=== PATIENT | female | born 1975 | race Caucasian/White ===

== ENCOUNTER → 2016-11-21 | Outpatient (CLI) | payer OTHER ==
[2016-11-21 11:24] LABS: BASO % 0.3 %; BASO ABS # 0.02 K/uL (0-0.2); HEMATOCRIT 36.7 % (37-47); IG% 0.3 %; LYMPH % 36.3 %; LYMPH ABS # 2.22 K/uL (1.2-3.4); MEAN CELL VOLUME 71.1 fL (80-100); MEAN CORPUSCULAR HEMOGLOBIN 22.7 pg (25-34); MEAN CORPUSCULAR HGB CONC 31.9 g/dl (32-36); MEAN PLATELET VOLUME 9.8 fL (7.4-10.4); MONO % 11.1 %; PLATELET COUNT 311 K/uL (130-400); RED BLOOD COUNT 5.16 M/uL (4.2-5.4); WHITE BLOOD COUNT 6.11 K/uL (4.8-10.8)
[2016-11-21 11:54] LABS: FERRITIN 30.5 ng/ml (8.0-388.0)
[2016-11-21 11:59] LABS: THYROID STIMULATING HORMONE 2.58 uIu/ml (0.300-4.500)
[2016-11-21 12:05] LABS: COMPLETE YES; MICROCYTOSIS PRESENT
== END | disposition home or self-care (01) ==
LOC: C.LAB 09:30
PROVIDERS: ATTEND Urology
DX: Z79.899 Other long term (current) drug therapy (principal); D64.9 Anemia, unspecified

== ENCOUNTER → 2017-04-29 | Outpatient (CLI) | payer OTHER ==
[2017-04-29 15:17] LABS: LYME DISEASE AB IGG NEG (NEG); LYME DISEASE AB IGM NEG (NEG)
== END | disposition home or self-care (01) ==
LOC: C.LAB1850 11:31
PROVIDERS: ATTEND Family Medicine Sports Medicine
DX: M54.5 Low back pain (principal); M53.3 Sacrococcygeal disorders, not elsewhere classified; M79.7 Fibromyalgia

== ENCOUNTER 2017-10-03 18:02 | Inpatient (IN) | payer OTHER ==
[~2017-10-03] VITALS: Ht 154.9 cm; Wt 76.0 kg
[2017-10-03] MEDS ORDERED: SODIUM CHLORIDE 0.9% 1000ML 1,000 ML IV STA (19:32)
[2017-10-03] MEDS ORDERED: ONDANSETRON INJ 2 MG/ML 2 ML VIAL IV STA (19:32)
--- NOTE | 2017-10-03 19:38 | EMERGENCY ROOM VISIT NOTE ---
History Report prepared by [facility]: Anel Rahman Under the Supervision of: Nain SmithO. First contact with patient: 19:26 Chief Complaint: VOMITING Stated Complaint: VOMITING,DIARRHEA,STOMACH CRAMPS History of Present Illness The patient is a 42 year old female who presents to the Emergency Room with complaints of vomiting beginning 0700 this morning. The patient states that she had diarrhea before the vomiting started, and states that yesterday she woke up with a sore throat. She also reports having abdominal cramps and reports feeling dizzy and light-headed. She states that she has been unable to eat or drink all day. She denies having black or bloody stool. The patient reports a history of inflammatory bowel disease with chronic diarrhea, fibromyalgia, bipolar disorder, and depression. She reports having C. diff several times, the last of which was 3 years ago. The patient reports a history of a cholecystectomy, hysterectomy, and appendectomy. Source of History: patient Onset: 0700 this morning Position: other (global) Quality: other (vomiting ) Associated Symptoms: + abdominal pain (abdominal cramps ), + diarrhea, + weakness (dizzy, light-headed) Note: patient denies: black and bloody stool Review of Systems See HPI for pertinent positives & negatives. A total of 10 systems reviewed and were otherwise negative. Past Medical & Surgical Medical Problems: (1) Abdominal pain (2) Allergic reaction (3) Allergic reaction (4) Chest pain (5) Chronic abdominal pain (6) Colitis (7) Gallbladder sludge (8) Gastroparesis (9) Hip pain (10) Hip pain (11) IBS (12) Migraine (13) Nausea vomiting and diarrhea (14) Nausea vomiting and diarrhea (15) Nausea, vomiting, and diarrhea (16) Ovarian cyst (17) Tubal Surgical Problems: (1) Appendectomy (2) H/O colonoscopy (3) History of - tubal ligation (4) Hysterectomy Family History No pertinent family history Social History Smoking Status: Never Smoker Alcohol Use: occasionally Marital Status: Occupation Status: employed Current/Historical Medications Scheduled Gabapentin (Neurontin), 600 MG PO TID Hydroxyzine Hcl (Atarax), 50 MG PO TID Lubiprostone (Amitiza), 1 CAP PO DAILY Pantoprazole (Protonix), 40 MG PO DAILY Probiotic Product (Align), 4 MG PO DAILY Trazodone Hcl (Trazodone), 100 MG PO HS Ziprasidone Hcl (Geodon), 1 DOSE PO BID Scheduled PRN Eletriptan (Relpax), 20 MG PO UD PRN for Migraine Allergies Coded Allergies: Amitriptyline (Verified Allergy, Mild, UNKNOWN, 06/29/16) Aspirin (Verified Allergy, Mild, FACE SWELLING, HAD TORADOL IN OR BEFORE W /O RXN, 06/29/16) Diazepam (Verified Allergy, Mild, UNKNOWN, 06/29/16) Lorazepam (Verified Allergy, Mild, UNKNOWN, 06/29/16) Midazolam (Verified Allergy, Unknown, respiratory distress, 06/29/16) Physical Exam Vital Signs Date Time Temp Pulse Resp B/P (MAP) Pulse Ox O2 Delivery O2 Flow Rate FiO2 10/03/17 21:30 95 16 119/88 97 Room Air 10/03/17 19:35 63 16 108/62 96 Room Air 10/03/17 18:33 36.2 128 18 117/82 95 Room Air Physical Exam GENERAL: Patient is awake, alert, and in no acute distress. Patient is resting comfortably and showing no signs of anxiety EYES: The conjunctivae are clear. The pupils are round and reactive. EARS, NOSE, MOUTH AND THROAT: The nose is without any evidence of any deformity. Mucous membranes are moist tongue is midline NECK: The neck is nontender and supple. RESPIRATORY: Normal respiratory effort is noted there is no evidence of wheezing rhonchi or rales CARDIOVASCULAR: Tachycardic rate, regular rhythm noted there no murmurs rubs or gallops normal S1 normal S2 GASTROINTESTINAL: The abdomen is soft. Bowel sounds are present in all quadrants. Abdomen is moderately distended and diffusely tender. No guarding or rigidity appreciated. MUSCULOSKELETAL/EXTREMITIES: There is no evidence of gross deformity full range of motion is noted in the hips and shoulders SKIN: There is no obvious evidence of any rash. There are no petechiae, pallor or cyanosis noted. NEUROLOGIC: Patient is awake alert and oriented x3 strength is symmetric patellar reflexes are 2+ bilaterally Medical Decision & Procedures ER Provider Diagnostic Interpretation: Radiology results as stated below per my review and radiologist interpretation: PA CHEST WITH ABDOMINAL SERIES CLINICAL HISTORY: Generalized abdominal pain. FINDINGS: A PA chest radiograph is compared to study dated 07/31/2015. The cardiomediastinal silhouette is unremarkable. There is mild elevation of the right hemidiaphragm. The lungs and pleural spaces are clear. No pneumothorax is seen. The bony thorax is grossly intact. Supine and erect abdominal radiographs are compared to radiographs and abdominal CT dated 07/23/2015. Cholecystectomy clips are seen in the right upper quadrant. There is a nonobstructed abdominal bowel gas pattern. No evidence of intraperitoneal free air is seen. There are no abnormal abdominal calcifications. Phleboliths are noted in the pelvis. The lumbosacral spine and bony pelvis appear intact. IMPRESSION: 1. No active disease in the chest. 2. Nonobstructed abdominal bowel gas pattern. Electronically signed by: Soy Meraz M.D. 10/03/2017 8:27 PM Dictated Date/Time: 10/03/2017 8:25 PM Laboratory Results 10/03/17 19:40 Red Blood Count 6.19, Mean Corpuscular Volume 71.6, Mean Corpuscular Hemoglobin 23.3, Mean Corpuscular Hemoglobin Concent 32.5, Mean Platelet Volume 9.6, Neutrophils (%) (Auto) 84.7, Lymphocytes (%) (Auto) 7.4, Monocytes (%) (Auto) 7.3, Eosinophils (%) (Auto) 0.2, Basophils (%) (Auto) 0.2, Neutrophils # (Auto) 10.86, Lymphocytes # (Auto) 0.95, Monocytes # (Auto) 0.94, Eosinophils # (Auto) 0.03, Basophils # (Auto) 0.03 10/03/17 19:40 Test 10/03/17 19:40 White Blood Count 12.84 K/uL (4.8-10.8) Red Blood Count 6.19 M/uL (4.2-5.4) Hemoglobin 14.4 g/dL (12.0-16.0) Hematocrit 44.3 % (37-47) Mean Corpuscular Volume 71.6 fL (80-100) Mean Corpuscular Hemoglobin 23.3 pg (25-34) Mean Corpuscular Hemoglobin Concent 32.5 g/dl (32-36) Platelet Count 367 K/uL (130-400) Mean Platelet Volume 9.6 fL (7.4-10.4) Neutrophils (%) (Auto) 84.7 % Lymphocytes (%) (Auto) 7.4 % Monocytes (%) (Auto) 7.3 % Eosinophils (%) (Auto) 0.2 % Basophils (%) (Auto) 0.2 % Neutrophils # (Auto) 10.86 K/uL (1.4-6.5) Lymphocytes # (Auto) 0.95 K/uL (1.2-3.4) Monocytes # (Auto) 0.94 K/uL (0.11-0.59) Eosinophils # (Auto) 0.03 K/uL (0-0.5) Basophils # (Auto) 0.03 K/uL (0-0.2) RDW Standard Deviation 37.3 fL (36.4-46.3) RDW Coefficient of Variation 14.3 % (11.5-14.5) Immature Granulocyte % (Auto) 0.2 % Immature Granulocyte # (Auto) 0.03 K/uL (0.00-0.02) Spherocytes 2+ Urine Color DK YELLOW Urine Appearance CLOUDY (CLEAR) Urine pH 5.0 (4.5-7.5) Urine Specific [place] 1.027 (1.000-1.030) Urine Protein TRACE (NEG) Urine Glucose (UA) NEG (NEG) Urine Ketones 1+ (NEG) Urine Occult Blood NEG (NEG) Urine Nitrite NEG (NEG) Urine Bilirubin NEG (NEG) Urine Urobilinogen NEG (NEG) Urine Leukocyte Esterase NEG (NEG) Urine WBC (Auto) 1-5 /hpf (0-5) Urine RBC (Auto) 0-4 /hpf (0-4) Urine Hyaline Casts (Auto) 5-10 /lpf (0-5) Urine Epithelial Cells (Auto) >30 /lpf (0-5) Urine Bacteria (Auto) 2+ (NEG) Urine Pathogenic Casts /lpf (0) Urine Mucus PRESENT (NONE PRSENT) Urine Yeast (Auto) (NONE PRSENT) Anion Gap 9.0 mmol/L (3-11) Est Creatinine Clear Calc Drug Dose 63.5 ml/min Estimated GFR () 75.0 Estimated GFR (Non- 64.7 BUN/Creatinine Ratio 13.4 (10-20) Calcium Level 9.0 mg/dl (8.5-10.1) Total Bilirubin 0.6 mg/dl (0.2-1) Direct Bilirubin 0.2 mg/dl (0-0.2) Aspartate Amino Transf (AST/SGOT) 111 U/L (15-37) Alanine Aminotransferase (ALT/SGPT) 78 U/L (12-78) Alkaline Phosphatase 142 U/L (45-117) Total Protein 8.7 gm/dl (6.4-8.2) Albumin 4.0 gm/dl (3.4-5.0) Lipase 2831 U/L (73-393) Human Chorionic Gonadotropin, Qual NEG (NEG) Laboratory results per my review. Medications Administered Medications (Trade) Dose Ordered Sig/Andrew Route Start Time Stop Time Status Last Admin Dose Admin Sodium Chloride 1,000 ml @ 999 mls/hr Q1H1M STAT IV 10/03/17 19:32 10/03/17 20:32 DC 10/03/17 19:45 999 MLS/HR Ondansetron HCl (Zofran Inj) 4 mg NOW STAT IV 10/03/17 19:32 10/03/17 19:33 DC 10/03/17 19:45 4 MG Pantoprazole Sodium 40 mg/ Syringe 10 ml @ 5 mls/min NOW ONCE IV 10/03/17 21:00 10/03/17 21:01 DC 10/03/17 21:28 5 MLS/MIN ED Course 0: The patient was evaluated in room C8. A complete history and physical examination were performed. 1931: Ordered Zofran Inj 4 mg IV, Sodium Chloride 1,000 ml @ 999 mls/hr IV. 2099: Ordered Pantoprazole Sodium 40 mg/Syringe 10 ml @ 5 mls/min IV. 2109: Upon reevaluation, the patient is resting. I discussed results and treatment plan with her. She verbalizes agreement and understanding. [facility] The patient will be evaluated for further management and care. Medical Decision Differential diagnosis: Etiologies such as appendicitis, diverticulitis, PUD, biliary pathology, UTI, pancreatitis, obstruction, mesenteric ischemia, aortic pathology, infections, inflammatory bowel disease, renal colic, as well as others were entertained. Nursing notes reviewed. The patient is a 42-year-old female who presented to the emergency department for an evaluation of diffuse abdominal tenderness. The patient was treated with IV fluids in the emergency department. She was also treated with IV antiemetics. I discussed patient's laboratory and radiographic studies with her. She was found have an elevation in her lipase and I do feel that her exam and history are consistent with pancreatitis. The patient denied any alcohol use. The patient was reevaluated multiple times. I discussed her case with the on-call [facility] hospitalist group. They've agreed to evaluate the patient in the emergency department for further management and disposition. Medication Reconcilliation Current Medication List: was personally reviewed by me Blood Pressure Screening Patient's blood pressure: Normal blood pressure Consults Time Called: 2102 Consulting Physician: Dr. Mccracken- [place] Returned Call: 2109 I discussed the patient's case with Dr. Mccracken . The patient will be evaluated for further management. Impression Primary Impression: Nausea, vomiting, and diarrhea Additional Impressions: Pancreatitis Abdominal pain Scribe Attestation The scribe's documentation has been prepared under my direction and personally reviewed by me in its entirety. I confirm that the note above accurately reflects all work, treatment, procedures, and medical decision making performed by me. Departure Information Dispostion Being Evaluated By Hospitalist Referrals Farhan Chu M.D. (PCP) Patient Instructions My [facility] Health Problem Qualifiers Additional Impressions: Pancreatitis Chronicity: acute Pancreatitis type: unspecified pancreatitis type Acute pancreatitis complication: unspecified Qualified Codes: K85.90 - Acute pancreatitis without necrosis or infection, unspecified Abdominal pain Abdominal location: generalized Qualified Codes: R10.84 - Generalized abdominal pain
[2017-10-03 20:03] LABS: URINE APPEARANCE CLOUDY (CLEAR); URINE BILIRUBIN NEG (NEG); URINE COLOR DK YELLOW; URINE EPITHELIAL CELL AUTO >30 /lpf (0-5); URINE NITRITE NEG (NEG); URINE SPECIFIC GRAVITY 1.027 (1.000-1.030); UROBILINOGEN NEG (NEG)
[2017-10-03 20:09] LABS: BASO % 0.2 %; BASO ABS # 0.03 K/uL (0-0.2); EOS % 0.2 %; HEMATOCRIT 44.3 % (37-47); IG% 0.2 %; LYMPH % 7.4 %; LYMPH ABS # 0.95 K/uL (1.2-3.4); MEAN CELL VOLUME 71.6 fL (80-100); MEAN CORPUSCULAR HEMOGLOBIN 23.3 pg (25-34); MEAN CORPUSCULAR HGB CONC 32.5 g/dl (32-36); MEAN PLATELET VOLUME 9.6 fL (7.4-10.4); MONO % 7.3 %; NEUT % 84.7 %; PLATELET COUNT 367 K/uL (130-400); RED BLOOD COUNT 6.19 M/uL (4.2-5.4); WHITE BLOOD COUNT 12.84 K/uL (4.8-10.8)
[2017-10-03 20:10] LABS: MANUAL MICROSCOPIC REQUIRED? NO; REVIEW REQ? YES
[2017-10-03 20:18] LABS: URINE MUCUS PRESENT (NONE PRSENT)
[2017-10-03 20:27] LABS: PREG INTERNAL NEGATIVE QC NEG CLEAR BACKGROUND; PREG INTERNAL POSITIVE QC POS CONTROL LINE
[2017-10-03] MEDS ORDERED: ZIPR1CAP4 PO (20:28)
[2017-10-03] MEDS ORDERED: GABA600T PO (20:28)
[2017-10-03] MEDS ORDERED: HYDR-3126 PO (20:28)
[2017-10-03] MEDS ORDERED: TRAZ100T29 PO (20:28)
[2017-10-03] MEDS ORDERED: LUBI8CAP4 PO (20:28)
[2017-10-03] MEDS ORDERED: MISC4CAP PO (20:28)
[2017-10-03] MEDS ORDERED: PANT40TA PO (20:28)
[2017-10-03] MEDS ORDERED: ELET20TA PO (20:28)
--- NOTE | 2017-10-03 20:29 | DIAGNOSTIC IMAGING REPORT ---
PA CHEST WITH ABDOMINAL SERIES CLINICAL HISTORY: Generalized abdominal pain. FINDINGS: A PA chest radiograph is compared to study dated 07/31/2015. The cardiomediastinal silhouette is unremarkable. There is mild elevation of the right hemidiaphragm. The lungs and pleural spaces are clear. No pneumothorax is seen. The bony thorax is grossly intact. Supine and erect abdominal radiographs are compared to radiographs and abdominal CT dated 07/23/2015. Cholecystectomy clips are seen in the right upper quadrant. There is a nonobstructed abdominal bowel gas pattern. No evidence of intraperitoneal free air is seen. There are no abnormal abdominal calcifications. Phleboliths are noted in the pelvis. The lumbosacral spine and bony pelvis appear intact. IMPRESSION: 1. No active disease in the chest. 2. Nonobstructed abdominal bowel gas pattern. Electronically signed by: Soy Meraz M.D. 10/03/2017 8:27 PM Dictated Date/Time: 10/03/2017 8:25 PM
[2017-10-03 20:30] LABS: BUN/CREATININE RATIO 13.4 (10-20); CREATININE 1.06 mg/dl (0.60-1.20); POTASSIUM 3.9 mmol/L (3.5-5.1)
[2017-10-03 21:00] LABS: COMPLETE YES; SPHEROCYTE 2+
[2017-10-03] MEDS ORDERED: PANTOprazole INJ 40 MG in SYRINGE 0 ML IV ONE (21:00)
[2017-10-03] MEDS ORDERED: OPTIRAY 320 IV PRN (22:00)
[2017-10-03] MEDS ORDERED: ONDANSETRON INJ 2 MG/ML 2 ML VIAL IV PRN (22:00)
[2017-10-03] MEDS ORDERED: KETOROLAC TROMETHAMINE 30 MG/ML VIAL ONE (22:15)
[2017-10-03] MEDS ORDERED: KETOROLAC TROMETHAMINE 30 MG/ML VIAL IV PRN (22:15)
[2017-10-03] MEDS ORDERED: MoRPHine SULFATE 2 MG/ML CARP IV PRN (22:15)
[2017-10-03] MEDS ORDERED: MoRPHine SULFATE 4 MG/ML 1 ML CARP\\VIAL IV PRN (22:15)
--- NOTE | 2017-10-03 22:51 | DIAGNOSTIC IMAGING REPORT ---
CT SCAN OF THE ABDOMEN AND PELVIS WITH IV CONTRAST CLINICAL HISTORY: Epigastric abdominal pain. Clinical concern for pancreatitis. COMPARISON STUDY: Abdominal CT dated 07/31/2015. TECHNIQUE: Following the IV administration of 92 cc of Optiray 320, CT scan of the abdomen and pelvis is performed from the lung bases to the proximal femora. Images are reviewed in the axial, sagittal, and coronal planes. IV contrast was administered without complication. A dose lowering technique was utilized adhering to the principles of ALARA. CT DOSE: 397.71 mGy.cm FINDINGS: Lung bases: The heart is normal in size and without pericardial effusion. The lung bases are clear noting dependent atelectasis. Liver: The contrast-enhanced liver is normal in size, contour, and attenuation. There is minimal central intrahepatic biliary ductal dilatation. The hepatic veins and portal veins are patent. A 2.3 cm cyst is seen in the left lobe. Additional subcentimeter hypodensities also likely represent cysts but are too small for definitive characterization. Gallbladder: Surgically absent noting clips in the gallbladder fossa. Spleen: Normal in size and attenuation. Pancreas: The pancreas is normal in appearance. No peripancreatic stranding or fluid is seen. The pancreatic duct is normal in caliber. The splenic vein is patent. The gland enhances homogeneously. Adrenal glands: Unremarkable. Kidneys: The contrast enhanced kidneys are normal in size and without hydronephrosis. The kidneys enhance symmetrically. Abdominal vasculature: The abdominal aorta is normal in course and caliber. Bowel: The small bowel and colon are normal in course and caliber. The appendix is not identified and reported surgically absent. Peritoneum: There is no intraperitoneal free air or abdominal ascites. There is a fat-containing umbilical hernia. Lymphadenopathy: None. Pelvic viscera: The bladder is decompressed and grossly unremarkable. The uterus is surgically absent. No adnexal lesion is seen. Small ovarian follicles are observed. Skeletal structures: No lytic or blastic lesions are seen. IMPRESSION: 1. There are no acute infectious or inflammatory findings in the abdomen or pelvis. 2. There is no CT evidence of acute pancreatitis as clinically queried. Correlation with clinical and laboratory findings will be required. Electronically signed by: Soy Meraz M.D. 10/03/2017 10:50 PM Dictated Date/Time: 10/03/2017 10:44 PM
[2017-10-03 22:56] VITALS: BP 112/77; PULSE 87; TEMP 36.5; O2SAT 98; Ht 154.9 cm; Wt 76.0 kg
--- NOTE | 2017-10-04 04:48 | History and Physical ---
History & Physical Date & Time of Service: Oct 04, 2017 at 04:36 Chief Complaint: Pancreatitis Primary Care Physician: Farhan Chu M.D. History of Present Illness Source: patient, hospital records This is a 42 yo f with a history of bipolar disorder that is presenting to us with acute onset epigastric pain. The patient states that it started earlier with N&V and acute diarrhea ( no blood/ mucus). She then started to develop epigastric abdominal pain which is currently a 6/10. The patient states that during the interview the pain started to radiate to the back. This pain is aggravated with any movement. She was evaluated in the ED and found to have an elevated lipase. The patient notes that she no history of pancreatitis , drinks rarely and has a history of cholecystectomy and appendectomy. Past Medical/Surgical History Medical Problems: (1) Abdominal pain Status: Resolved (2) Allergic reaction Status: Resolved (3) Allergic reaction Status: Resolved (4) Chest pain Status: Resolved (5) Chronic abdominal pain Status: Chronic (6) Colitis Status: Chronic (7) Gallbladder sludge Status: Chronic (8) Gastroparesis Status: Chronic (9) Hip pain Status: Resolved (10) Hip pain Status: Resolved (11) IBS Status: Chronic (12) Migraine Status: Chronic (13) Nausea vomiting and diarrhea Status: Resolved (14) Nausea vomiting and diarrhea Status: Resolved (15) Nausea, vomiting, and diarrhea Status: Resolved (16) Ovarian cyst Status: Resolved (17) Tubal Status: Resolved Surgical Problems: (1) Appendectomy Status: Resolved (2) H/O colonoscopy Status: Resolved (3) History of - tubal ligation Status: Resolved (4) Hysterectomy Status: Resolved Family History No pertinent family history Social History Smoking Status: Never Smoker Smokeless Tobacco Use: No Alcohol Use: occasionally Drug Use: none Marital Status: Housing status: lives with family Occupational Status: employed Immunizations History of Influenza Vaccine: No History of Tetanus Vaccine?: Unknown History of Pneumococcal: Unknown History of Hepatitis B Vaccine: Yes Multi-Drug Resistant Organisms History of MDRO: No Allergies Coded Allergies: Amitriptyline (Verified Allergy, Mild, UNKNOWN, 06/29/16) Aspirin (Verified Allergy, Mild, FACE SWELLING, HAD TORADOL IN OR BEFORE W /O RXN, 06/29/16) Diazepam (Verified Allergy, Mild, UNKNOWN, 06/29/16) Lorazepam (Verified Allergy, Mild, UNKNOWN, 06/29/16) Midazolam (Verified Allergy, Unknown, respiratory distress, 06/29/16) Home Medications Scheduled Gabapentin (Neurontin), 600 MG PO TID Hydroxyzine Hcl (Atarax), 50 MG PO TID Lubiprostone (Amitiza), 1 CAP PO DAILY Pantoprazole (Protonix), 40 MG PO DAILY Probiotic Product (Align), 4 MG PO DAILY Trazodone Hcl (Trazodone), 100 MG PO HS Ziprasidone Hcl (Geodon), 1 DOSE PO BID Scheduled PRN Eletriptan (Relpax), 20 MG PO UD PRN for Migraine Review of Systems Constitutional: No fever, No chills, No sweats Eyes: No worsening of vision ENT: No hearing loss Respiratory: No cough, No sputum, No wheezing, No shortness of breath Cardiovascular: No chest pain Abdomen: + pain, + nausea, + vomiting, + diarrhea Musculoskeletal: No joint pain, No muscle pain Genitourinary - Female: No dysuria, No hematuria Neurologic: + weakness, No numbness/tingling, No balance problems Endocrine: + fatigue Integumentary: No rash Physical Exam Vital Signs Date Time Temp Pulse Resp B/P (MAP) Pulse Ox O2 Delivery O2 Flow Rate FiO2 10/03/17 22:56 36.5 87 16 112/77 98 Room Air 10/03/17 22:30 36.2 88 16 104/78 97 10/03/17 21:30 95 16 119/88 97 Room Air 10/03/17 19:35 63 16 108/62 96 Room Air 10/03/17 18:33 36.2 128 18 117/82 95 Room Air General Appearance: no apparent distress Head: normocephalic, atraumatic Eyes: normal inspection ENT: + pertinent finding (tropia noted) Neck: supple Respiratory/Chest: normal breath sounds, no respiratory distress, no accessory muscle use Cardiovascular: regular rate, rhythm, no murmur, normal peripheral pulses Abdomen/GI: normal bowel sounds, soft, + tenderness ( without rebound in epigastric region, negative marin, mcburney and obturator) Back: normal inspection, no CVA tenderness Extremities/Musculoskelatal: normal inspection, no calf tenderness, no pedal edema Neurologic/Psych: alert, normal mood/affect, oriented x 3 Skin: normal color, warm/dry, no rash Lymphatic: no adenopathy Diagnostics Laboratory Results Results Past 24 Hours Test 10/03/17 19:40 Range/Units White Blood Count 12.84 4.8-10.8 K/uL Red Blood Count 6.19 4.2-5.4 M/uL Hemoglobin 14.4 12.0-16.0 g/dL Hematocrit 44.3 37-47 % Mean Corpuscular Volume 71.6 80-100 fL Mean Corpuscular Hemoglobin 23.3 25-34 pg Mean Corpuscular Hemoglobin Concent 32.5 32-36 g/dl Platelet Count 367 130-400 K/uL Mean Platelet Volume 9.6 7.4-10.4 fL Neutrophils (%) (Auto) 84.7 % Lymphocytes (%) (Auto) 7.4 % Monocytes (%) (Auto) 7.3 % Eosinophils (%) (Auto) 0.2 % Basophils (%) (Auto) 0.2 % Neutrophils # (Auto) 10.86 1.4-6.5 K/uL Lymphocytes # (Auto) 0.95 1.2-3.4 K/uL Monocytes # (Auto) 0.94 0.11-0.59 K/uL Eosinophils # (Auto) 0.03 0-0.5 K/uL Basophils # (Auto) 0.03 0-0.2 K/uL RDW Standard Deviation 37.3 36.4-46.3 fL RDW Coefficient of Variation 14.3 11.5-14.5 % Immature Granulocyte % (Auto) 0.2 % Immature Granulocyte # (Auto) 0.03 0.00-0.02 K/uL Spherocytes 2+ Urine Color DK YELLOW Urine Appearance CLOUDY CLEAR Urine pH 5.0 4.5-7.5 Urine Specific [place] 1.027 1.000-1.030 Urine Protein TRACE NEG Urine Glucose (UA) NEG NEG Urine Ketones 1+ NEG Urine Occult Blood NEG NEG Urine Nitrite NEG NEG Urine Bilirubin NEG NEG Urine Urobilinogen NEG NEG Urine Leukocyte Esterase NEG NEG Urine WBC (Auto) 1-5 0-5 /hpf Urine RBC (Auto) 0-4 0-4 /hpf Urine Hyaline Casts (Auto) 5-10 0-5 /lpf Urine Epithelial Cells (Auto) >30 0-5 /lpf Urine Bacteria (Auto) 2+ NEG Urine Pathogenic Casts 0 /lpf Urine Mucus PRESENT NONE PRSENT Urine Yeast (Auto) NONE PRSENT Sodium Level 137 136-145 mmol/L Potassium Level 3.9 3.5-5.1 mmol/L Chloride Level 104 98-107 mmol/L Carbon Dioxide Level 24 21-32 mmol/L Anion Gap 9.0 3-11 mmol/L Blood Urea Nitrogen 14 7-18 mg/dl Creatinine 1.06 0.60-1.20 mg/dl Est Creatinine Clear Calc Drug Dose 63.5 ml/min Estimated GFR () 75.0 Estimated GFR (Non- 64.7 BUN/Creatinine Ratio 13.4 10-20 Random Glucose 144 70-99 mg/dl Calcium Level 9.0 8.5-10.1 mg/dl Total Bilirubin 0.6 0.2-1 mg/dl Direct Bilirubin 0.2 0-0.2 mg/dl Aspartate Amino Transf (AST/SGOT) 111 15-37 U/L Alanine Aminotransferase (ALT/SGPT) 78 12-78 U/L Alkaline Phosphatase 142 45-117 U/L Total Protein 8.7 6.4-8.2 gm/dl Albumin 4.0 3.4-5.0 gm/dl Lipase 2831 73-393 U/L Human Chorionic Gonadotropin, Qual NEG NEG Diagnostic Radiology PA CHEST WITH ABDOMINAL SERIES CLINICAL HISTORY: Generalized abdominal pain. FINDINGS: A PA chest radiograph is compared to study dated 07/31/2015. The cardiomediastinal silhouette is unremarkable. There is mild elevation of the right hemidiaphragm. The lungs and pleural spaces are clear. No pneumothorax is seen. The bony thorax is grossly intact. Supine and erect abdominal radiographs are compared to radiographs and abdominal CT dated 07/23/2015. Cholecystectomy clips are seen in the right upper quadrant. There is a nonobstructed abdominal bowel gas pattern. No evidence of intraperitoneal free air is seen. There are no abnormal abdominal calcifications. Phleboliths are noted in the pelvis. The lumbosacral spine and bony pelvis appear intact. IMPRESSION: 1. No active disease in the chest. 2. Nonobstructed abdominal bowel gas pattern. Impression Assessment and Plan This is a 42 yo f that is suffering from pancreatitis vs gastroenteritis Epigastric pain secondary to pancreatitis vs gastroenteritis - med surg admission - Toradol for pain control - Lipase and CMP repeat in am - NSS @ 125 cc/h - CT Abd to assess for pancreatic pseudocyst - Stool cultures and C diff Bipolar disorder continue gabapentin 600 mg tid, hydroxyzine 50 mg tid, trazodone 50 mg HS - Geodon held GERD Protonix cont'd DVT prophylaxis SCD Attending addendum: I have physically seen this patient, have supervised the medical residents activities, and agree with the H&P unless as otherwise noted. Assessment and Plan: Pancreatitis/gastroenteritis-- Order a CT of abdomen and pelvis to further characterize. Nothing by mouth IV fluids repeat CBCD, CMP, lipase in serially. Toradol IV for moderate pain, morphine IV for severe pain Further management pending results of above study Bipolar disorder-- Continue gabapentin, hydroxyzine and trazodone Level of Care Med/Surg Advanced Directives Existing Advance Directive: No Existing Living Will: No Existing Power of Chain Hoist Operator: No Resuscitation Status FULL RESUSCITATION VTE Prophylaxis VTE Risk Assessment Done? Y/N: Yes Risk Level: Moderate Given or contraindicated: SCD's Social Service Consult None Apply Note Total Time: Critical Care 30 - 74 minutes Additional Copies To Farhan Chu M.D.
[2017-10-04 05:32] LABS: BASO % 0.3 %; BASO ABS # 0.02 K/uL (0-0.2); EOS % 0.4 %; HEMATOCRIT 37.7 % (37-47); IG% 0.3 %; LYMPH % 15.1 %; LYMPH ABS # 1.03 K/uL (1.2-3.4); MEAN CELL VOLUME 72.5 fL (80-100); MEAN CORPUSCULAR HEMOGLOBIN 22.9 pg (25-34); MEAN CORPUSCULAR HGB CONC 31.6 g/dl (32-36); MEAN PLATELET VOLUME 8.8 fL (7.4-10.4); MONO % 8.4 %; NEUT % 75.5 %; PLATELET COUNT 262 K/uL (130-400); WHITE BLOOD COUNT 6.82 K/uL (4.8-10.8)
[2017-10-04] MEDS: SODIUM CHLORIDE 0.9% 1000ML 1,000 ML IV SCH ×3 (05:41→20:35)
[2017-10-04 05:51] LABS: BUN/CREATININE RATIO 16.3 (10-20); CALCIUM 7.9 mg/dl (8.5-10.1); CREATININE 0.75 mg/dl (0.60-1.20); POTASSIUM 3.4 mmol/L (3.5-5.1)
[2017-10-04 05:52] LABS: ALB/GLOB RATIO 0.8 (0.9-2)
[2017-10-04 06:15] LABS: ANISOCYTOSIS PRESENT; COMPLETE YES; POLYCHROMASIA 1+
[2017-10-04 07:20] VITALS: BP 105/63; PULSE 89; TEMP 37; O2SAT 96
[2017-10-04] MEDS: GABAPENTIN 600 MG TAB PO SCH ×3 (08:29→21:47)
[2017-10-04 08:30] VITALS: O2SAT 96
[2017-10-04] MEDS: PANTOprazole SOD 40 MG TAB PO SCH (08:32)
[2017-10-04] MEDS: hydrOXYzine HCL 25 MG TAB PO SCH ×3 (08:33→21:46)
[2017-10-04] MEDS: LACTOBACILLUS ACIDOPHILUS (FLORANEX) TAB PO SCH (08:35)
--- NOTE | 2017-10-04 14:18 | Progress Note ---
Progress Note Date of Service Oct 04, 2017. (Alka. Moreira MD) Progress Note S: Patient well. Improved since admission in terms of dehydration status and abdominal discomfort. Declined last dose of Zofran and had subsequent emesis a few hours later, but had been well all night. Ambulating, voiding and stooling with symptom exacerbation. Requesting some diet. O: Vitals WNL. NC/AT. Neck supple, tender cervical adenopathy. Mucous membranes moist. RRR with S1&S2, no murmurs. Lungs CTAB. Diffuse abdominal tenderness without guarding or rebound, BS+. No LL edema. No rashes. A/P: 42 year old female with likely viral gastroenteritis Epigastric pain Likely secondary to viral gastroenteritis given CT abdo negative for pancreatitis and rapid resolution of lipase and concurrent URTI symptoms. - Continue hydration with NSS @ 125 cc/h - Transition to diet: advised for paced consumption and PO fluid intake - Zofran PRN - Toradol for pain control - Stool cultures and C diff pending - Trend CMP Bipolar disorder - Continue gabapentin 600mg TID, hydroxyzine 50mg TID, trazodone 50mg HS - Geodon held GERD - Continue pantoprazole DVT prophylaxis - SCD (Alka. Moreira MD) Resident Physician Supervision Note: I interviewed and examined the patient. Discussed with Dr. Moreira and agree with findings and plan as documented in the note. Any exceptions or clarifications are listed here: None Documented By: Ryan Hendricks feeling better some. would like hot tea. no other new complaints. reviewed labs, data, imaging. d/w pt and vitals noted nad breathing unlabored no pallor or icterus gastroenteritis - appearing far more likely gastroenteritis pathology than pancreatitis (lipase improved overnight, no radiographic evidence of pancreatitis, sx more c/w GE) -- supportive care, advance diet as possible, symptom control, home once tolerating PO well enough and clearly improving (? later today vs tomorrow most likely?) (Ryan Hendricks, Stevie.) Resident Tracking Resident Involvement: Resident Care Provided Care Provided: Adult Hospital Medicine (Alka. Moreira MD)
[2017-10-04 15:06] VITALS: BP 102/68; PULSE 80; TEMP 36.6; O2SAT 96
[2017-10-04] MEDS ORDERED: HOME MED ADMINISTRATION ONE (15:45)
[2017-10-04] MEDS ORDERED: ELETRIPTAN HYDROBROMIDE 20 MG PO PRN (16:15)
[2017-10-04] MEDS ORDERED: TRAZODONE HCL 100 MG TAB PO SCH (21:00)
[2017-10-05] MEDS: SODIUM CHLORIDE 0.9% 1000ML 1,000 ML IV SCH (05:08)
[2017-10-05 07:19] VITALS: BP 110/73; PULSE 78; TEMP 36.6; O2SAT 97
[2017-10-05 07:53] LABS: HEMATOCRIT 34.6 % (37-47); MEAN CELL VOLUME 72.8 fL (80-100); MEAN CORPUSCULAR HEMOGLOBIN 22.7 pg (25-34); MEAN CORPUSCULAR HGB CONC 31.2 g/dl (32-36); MEAN PLATELET VOLUME 9.6 fL (7.4-10.4); PLATELET COUNT 261 K/uL (130-400); RED BLOOD COUNT 4.75 M/uL (4.2-5.4); WHITE BLOOD COUNT 5.78 K/uL (4.8-10.8)
[2017-10-05] MEDS: PANTOprazole SOD 40 MG TAB PO SCH (08:29)
[2017-10-05] MEDS: hydrOXYzine HCL 25 MG TAB PO SCH (08:29)
[2017-10-05] MEDS: GABAPENTIN 600 MG TAB PO SCH (08:29)
[2017-10-05] MEDS: LACTOBACILLUS ACIDOPHILUS (FLORANEX) TAB PO SCH (08:29)
[2017-10-05 08:30] VITALS: O2SAT 97
[2017-10-05 08:36] LABS: ALB/GLOB RATIO 0.8 (0.9-2); BUN/CREATININE RATIO 10.9 (10-20); CALCIUM 7.6 mg/dl (8.5-10.1); CREATININE 0.64 mg/dl (0.60-1.20); POTASSIUM 3.5 mmol/L (3.5-5.1)
[2017-10-05] MEDS ORDERED: ONDA4TAB46 PO (09:19)
--- NOTE | 2017-10-05 09:29 | Discharge Instructions ---
Discharge Instructions Date of Service Oct 05, 2017. Admission Reason for Admission: Pancreatitis Discharge Discharge Diagnosis / Problem: Gastroenteritis Discharge Goals Goal(s): Decrease discomfort, Diagnostic testing Activity Recommendations Activity Limitations: resume your previous activity . Instructions / Follow-Up Instructions / Follow-Up You were admitted to hospital with vomiting, diarrhea and abdominal pain. After initial labs, there was some concern about pancreatitis, but this was deemed to be unlikely secondary to imaging not consistent with this diagnosis and a rapid resolution of abnormal labs. It is most likely that you have a viral gastroenteritis, which is managed symptomatically. You are advised for rest, plenty of fluids, Tylenol or ibuprofen for pain and ondansetron (Zofran) to control the nausea. You may resume all other home medications. If pain worsens, you develop fever, inability to tolerate oral intake, or new concerning symptoms arise, please seek medical advice/follow up with your PCP. Thank you for allowing us to participate in your care. Current Hospital Diet Patient's current hospital diet: Regular Diet Discharge Diet Recommended Diet: Regular Diet Pending Studies Studies pending at discharge: yes List of pending studies: Stool culture, shiga toxin Medical Emergencies . Who to Call and When: Medical Emergencies: If at any time you feel your situation is an emergency, please call 911 immediately. . Non-Emergent Contact Non-Emergency issues call your: Primary Care Provider . . "Provider Documentation" section prepared by Chetna Moreira. . VTE Core Measure Inpt VTE Proph given/why not?: SCD's Resident Tracking Resident Involvement: Resident Care Provided Care Provided: Adult Hospital Medicine
--- NOTE | 2017-10-05 09:30 | Discharge Summary ---
Discharge Summary Date of Service Oct 05, 2017. Discharge Summary Admission Date: Oct 03, 2017 at 21:54 Discharge Date: Oct 05, 2017 Discharge Disposition: Home Principal Diagnosis: Gastroenteritis Problems/Secondary Diagnoses: (1) Chronic abdominal pain Status: Chronic (2) Gallbladder sludge Status: Chronic (3) Gastroparesis Status: Chronic Immunizations: Have You Had Influenza Vaccine: No History of Tetanus Vaccine?: Unknown History of Pneumococcal: Unknown History of Hepatitis B Vaccine: Yes Medication Reconciliation New Medications: Ondansetron Hcl (Zofran) 4 Mg Tab 4 MG PO Q8 PRN for Nausea, #14 TAB Continued Medications: Eletriptan (Relpax) 20 Mg Tab 20 MG PO UD PRN for Migraine, TAB TAKE ONE TABLET AT ONSET OF MIGRAINE, MAY REPEAT AFTER 2 HOURS IF NEEDED. MAXIMUM OF 2 TABLETS/24 HOURS. Gabapentin (Neurontin) 600 Mg Tab 600 MG PO TID, TAB Hydroxyzine Hcl (Atarax) 50 Mg Tab 50 MG PO TID, TAB Lubiprostone (Amitiza) Unknown Strength Cap 1 CAP PO DAILY, CAP Pantoprazole (Protonix) 40 Mg Tab 40 MG PO DAILY, TAB Probiotic Product (Align) 4 Mg Cap 4 MG PO DAILY Trazodone Hcl (Trazodone) 100 Mg Tab 100 MG PO HS, TAB Ziprasidone Hcl (Geodon) Unknown Strength Cap 1 DOSE PO BID, CAP Discharge Exam Patient feeling better today. She has been tolerating diet without further emesis. Her abdominal discomfort is significantly reduced. Zofran is controlling nausea. She denies lightheadedness/headaches. She otherwise denies fevers/chills, CP, palpitations, dyspnea, lower extremity swelling or rashes. She is ambulating without exacerbating symptoms, and voiding appropriately. Her last BM was yesterday. ROS is unremarkable except as noted above. Physical Exam: General Appearance: WD/WN, + pertinent finding Eyes: normal inspection ENT: hearing grossly normal Neck: supple Respiratory/Chest: lungs clear, normal breath sounds, no respiratory distress Cardiovascular: regular rate, rhythm, no murmur, normal peripheral pulses Abdomen / GI: normal bowel sounds, non tender, soft Extremities: normal inspection, normal capillary refill, no pedal edema Neurologic/Psychiatric: alert, normal reflexes, oriented x 3 Skin: normal color, warm/dry, no rash Hospital Course 42 year old female with likely viral gastroenteritis Epigastric pain Likely secondary to viral gastroenteritis given CT abdo negative for pancreatitis and rapid resolution of lipase and concurrent URTI symptoms. C diff negative. IVF discontinued post hydration and confirmation of adequate PO intake. Labs normalizing. elevated lipase and transaminases almost certainly related to acute illness but would f/u CMP ~1wk to ensure totally returns to normal. On discharge, recommend rest, continued PO fluids, diet as tolerated, Tylenol or ibuprofen PRN abdominal discomfort, ondansetron PRN nausea Stool cultures and shiga toxin results pending Follow up with PCP in 1-2 weeks, CMP ~1wks Bipolar disorder - Continue home meds: gabapentin 600mg TID, hydroxyzine 50mg TID, trazodone 50mg HS, Geodon GERD - Continue home meds: pantoprazole DVT prophylaxis - SCD Resident Physician Supervision Note: I interviewed and examined the patient. Discussed with Dr. Moreira and agree with findings and plan as documented in the note. Any exceptions or clarifications are listed here: None Documented By: Ryan Hendricks feeling better eating OK vitals noted nad breathing unlabored no pallor or icterus nausea/vomiting - likely viral GE - improved w supportive care, safe/stable for home, outpt f/u otherwise as above Total Time Spent: Less than 30 minutes This includes examination of the patient, discharge planning, medication reconciliation, and communication with other providers. Discharge Instructions Please refer to the electronic Patient Visit Report (Discharge Instructions) for additional information. Additional Copies To Farhan Chu M.D. Resident Tracking Resident Involvement: Resident Care Provided Care Provided: Adult Hospital Medicine
[2017-10-05 10:56] VITALS: BP 110/73; PULSE 78; TEMP 36.6; O2SAT 97
[2017-10-07 18:26] LABS: O&P GIARDIA AG NOT DETECTED (NOT DETECTED)
== END 2017-10-05 11:45 | disposition home or self-care (01) | DRG 392 ==
LOC: C.EDB 18:03 → C.4E 21:54 → ENRESERV 22:18
PROVIDERS: ADMIT Hospitalist; ATTEND Family Medicine
DX: A08.4 Viral intestinal infection, unspecified (principal); F31.9 Bipolar disorder, unspecified; K21.9 Gastro-esophageal reflux disease without esophagitis; Z90.49 Acquired absence of other specified parts of digestive tract; Z79.899 Other long term (current) drug therapy

== ENCOUNTER 2017-12-14 15:08 | Emergency (ER) | payer OTHER ==
[~2017-12-14] VITALS: Ht 154.9 cm; Wt 75.0 kg
[~2017-12-14 15:08] MED LIST: ONDA4TAB46 PO
[2017-12-14 16:21] VITALS: TEMP 36.9; Ht 154.9 cm; Wt 75.0 kg
[2017-12-14] MEDS ORDERED: SODIUM CHLORIDE 0.9% 500ML 500 ML IV STA (16:50)
[2017-12-14] MEDS ORDERED: KETOROLAC TROMETHAMINE 30 MG/ML VIAL IV STA (16:50)
[2017-12-14] MEDS ORDERED: BENZONATATE 100MG CAP PO ONE (17:00)
[2017-12-14 17:09] LABS: INFLUENZA B ANTIGEN Neg for Influ B (NEG)
[2017-12-14 17:34] LABS: BASO % 0.3 %; BASO ABS # 0.02 K/uL (0-0.2); EOS % 0.3 %; EOS ABS # 0.02 K/uL (0-0.5); HEMATOCRIT 39.3 % (37-47); IG# 0.02 K/uL (0.00-0.02); LYMPH % 17.5 %; LYMPH ABS # 1.03 K/uL (1.2-3.4); MEAN CELL VOLUME 70.7 fL (80-100); MEAN CORPUSCULAR HEMOGLOBIN 23.4 pg (25-34); MEAN CORPUSCULAR HGB CONC 33.1 g/dl (32-36); MEAN PLATELET VOLUME 9.6 fL (7.4-10.4); MONO % 15.3 %; NEUT % 66.3 %; NEUT ABS # 3.89 K/uL (1.4-6.5); PLATELET COUNT 300 K/uL (130-400); RED CELL DISTRIBUTION WIDTH CV 14.2 % (11.5-14.5); RED CELL DISTRIBUTION WIDTH SD 36.2 fL (36.4-46.3); WHITE BLOOD COUNT 5.88 K/uL (4.8-10.8)
--- NOTE | 2017-12-14 17:51 | DIAGNOSTIC IMAGING REPORT ---
CHEST ONE VIEW PORTABLE CLINICAL HISTORY: Chest Pain dyspnea COMPARISON STUDY: 10/03/2017 FINDINGS: The bones soft tissues and hemidiaphragms are normal. The cardiomediastinal silhouette is normal. The lungs are clear. The pulmonary vasculature is normal. IMPRESSION: Negative chest. The above report was generated using voice recognition software. It may contain grammatical, syntax or spelling errors. Electronically signed by: Aaron Weiss M.D. 12/14/2017 5:50 PM Dictated Date/Time: 12/14/2017 5:50 PM
[2017-12-14 17:54] LABS: BLOOD UREA NITROGEN 14 mg/dl (7-18); CALCIUM 8.7 mg/dl (8.5-10.1); CARBON DIOXIDE 21 mmol/L (21-32); CREATININE 1.03 mg/dl (0.60-1.20); GLUCOSE 90 mg/dl (70-99); POTASSIUM 3.5 mmol/L (3.5-5.1); SODIUM 137 mmol/L (136-145)
[2017-12-14] MEDS ORDERED: BENZ100C18 PO (18:26)
[2017-12-14 18:34] VITALS: BP 118/73; PULSE 81; O2SAT 98
--- NOTE | 2017-12-14 19:40 | EMERGENCY ROOM VISIT NOTE ---
History Report prepared by [facility]: Keith Weathers Under the Supervision of: Dr. Ryan Mendez D.O. First contact with patient: 16:43 Chief Complaint: FLU LIKE SX Stated Complaint: CHEST PAIN, COUGH,EARACHE,CHILLS,SWEATS History of Present Illness The patient is a 42 year old female who presents to the Emergency Room with complaints of a worsening cough that began two days ago. Patient denies diabetes , hypertension, hyperlipidemia, CAD, history of sudden at a young age, and smoking. A couple of days ago, the patient began to experience a sore throat , dry cough, ear pain, left sided chest pain, chills, and diaphoresis. Her chest pain is worsened with movement/twisting/turning/bending and coughing, but is there if she does not do these things. Her pain also radiates into her back. Pt denies headache, change in vision, fevers, shortness of breath, abdominal pain, nausea, vomiting, diarrhea, pain with urination, and melena. 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 Patient denies swelling of calves, recent trips, history of immobilization or recent surgery, prior history of DVT, hemoptysis, history of malignancy, history of smoking, or control/estrogen use. Source of History: patient Onset: two days ago Position: other (Respiratory System) Symptom Intensity: moderate Quality: other (Cough) Timing: worsening Associated Symptoms: + chills, + diaphoresis, + sorethroat, + cough, + chest pain, + back pain, No fevers, No SOB, No nausea, No vomiting, No abdominal pain, No melena, No diarrhea, No urinary symptoms Review of Systems See HPI for pertinent positives & negatives. A total of 10 systems reviewed and were otherwise negative. Past Medical & Surgical Medical Problems: (1) Abdominal pain (2) Allergic reaction (3) Allergic reaction (4) Chest pain (5) Chronic abdominal pain (6) Colitis (7) Gallbladder sludge (8) Gastroparesis (9) Hip pain (10) Hip pain (11) IBS (12) Migraine (13) Nausea vomiting and diarrhea (14) Nausea vomiting and diarrhea (15) Nausea, vomiting, and diarrhea (16) Ovarian cyst (17) Tubal Surgical Problems: (1) Appendectomy (2) H/O colonoscopy (3) History of - tubal ligation (4) Hysterectomy Family History No pertinent family history Social History Smoking Status: Never Smoker Alcohol Use: occasionally Drug Use: none Marital Status: Occupation Status: employed Current/Historical Medications Scheduled Benzonatate (Tessalon Perles), 100 MG PO TID Gabapentin (Neurontin), 600 MG PO TID Hydroxyzine Hcl (Atarax), 50 MG PO TID Lubiprostone (Amitiza), 8 MCG PO BIDM Pantoprazole (Protonix), 40 MG PO DAILY Probiotic Product (Align), 4 MG PO DAILY Trazodone Hcl (Trazodone), 100 MG PO HS Ziprasidone Hcl (Geodon), 40 MG PO BID Scheduled PRN Eletriptan (Relpax), 20 MG PO UD PRN for Migraine Allergies Coded Allergies: Amitriptyline (Verified Allergy, Mild, UNKNOWN, 06/29/16) Aspirin (Verified Allergy, Mild, FACE SWELLING, HAD TORADOL IN OR BEFORE W /O RXN, 06/29/16) Diazepam (Verified Allergy, Mild, UNKNOWN, 06/29/16) Lorazepam (Verified Allergy, Mild, UNKNOWN, 06/29/16) Midazolam (Verified Allergy, Unknown, respiratory distress, 06/29/16) Physical Exam Vital Signs Date Time Temp Pulse Resp B/P (MAP) Pulse Ox O2 Delivery O2 Flow Rate FiO2 12/14/17 18:34 81 16 118/73 98 12/14/17 18:05 80 16 105/83 96 Room Air 12/14/17 17:21 84 19 119/83 97 Room Air 12/14/17 16:21 36.9 98 20 125/92 96 Room Air Physical Exam GENERAL: Sitting up in bed with a dry nonproductive cough, alert, well appearing , well nourished, no distress, non-toxic EYE EXAM: normal conjunctiva. OROPHARYNX: no exudate, erythema posteriorly, lips, buccal mucosa, and tongue normal and mucous membranes are moist EAR EXAM: TM's clear bilaterally NECK: supple, no nuchal rigidity, no adenopathy, non-tender LUNGS: Clear to auscultation. Normal chest wall mechanics HEART: no murmurs, S1 normal and S2 normal CHEST: Acute reproducible left anterior chest wall pain tracking up through the trapezius. ABDOMEN: abdomen soft, non-tender, normo-active bowel sounds, no masses, no rebound or guarding. BACK: Back is symmetrical on inspection and there is no deformity, no midline tenderness, no CVA tenderness. SKIN: no rashes and no bruising UPPER EXTREMITIES: upper extremities are grossly normal. LOWER EXTREMITIES: No pitting edema. Calves are equal bilaterally. NEURO EXAM: Normal sensorium, cranial nerves II-XII grossly intact, normal speech, no gross weakness of arms, no gross weakness of legs. Medical Decision & Procedures ER Provider Diagnostic Interpretation: Radiology results as stated below per my review and the radiologist's interpretation: CHEST ONE VIEW PORTABLE CLINICAL HISTORY: Chest Pain dyspnea COMPARISON STUDY: 10/03/2017 FINDINGS: The bones soft tissues and hemidiaphragms are normal. The cardiomediastinal silhouette is normal. The lungs are clear. The pulmonary vasculature is normal. IMPRESSION: Negative chest. The above report was generated using voice recognition software. It may contain grammatical, syntax or spelling errors. Electronically signed by: Aaron Weiss M.D. 12/14/2017 5:50 PM Dictated Date/Time: 12/14/2017 5:50 PM Laboratory Results 12/14/17 17:15 Red Blood Count 5.56, Mean Corpuscular Volume 70.7, Mean Corpuscular Hemoglobin 23.4, Mean Corpuscular Hemoglobin Concent 33.1, Mean Platelet Volume 9.6, Neutrophils (%) (Auto) 66.3, Lymphocytes (%) (Auto) 17.5, Monocytes (%) (Auto) 15.3, Eosinophils (%) (Auto) 0.3, Basophils (%) (Auto) 0.3, Neutrophils # (Auto ) 3.89, Lymphocytes # (Auto) 1.03, Monocytes # (Auto) 0.90, Eosinophils # (Auto ) 0.02, Basophils # (Auto) 0.02 12/14/17 17:15 Test 12/14/17 16:00 12/14/17 17:15 Influenza Type A Antigen Neg for Influ A (NEG) Influenza Type B Antigen Neg for Influ B (NEG) White Blood Count 5.88 K/uL (4.8-10.8) Red Blood Count 5.56 M/uL (4.2-5.4) Hemoglobin 13.0 g/dL (12.0-16.0) Hematocrit 39.3 % (37-47) Mean Corpuscular Volume 70.7 fL (80-100) Mean Corpuscular Hemoglobin 23.4 pg (25-34) Mean Corpuscular Hemoglobin Concent 33.1 g/dl (32-36) Platelet Count 300 K/uL (130-400) Mean Platelet Volume 9.6 fL (7.4-10.4) Neutrophils (%) (Auto) 66.3 % Lymphocytes (%) (Auto) 17.5 % Monocytes (%) (Auto) 15.3 % Eosinophils (%) (Auto) 0.3 % Basophils (%) (Auto) 0.3 % Neutrophils # (Auto) 3.89 K/uL (1.4-6.5) Lymphocytes # (Auto) 1.03 K/uL (1.2-3.4) Monocytes # (Auto) 0.90 K/uL (0.11-0.59) Eosinophils # (Auto) 0.02 K/uL (0-0.5) Basophils # (Auto) 0.02 K/uL (0-0.2) RDW Standard Deviation 36.2 fL (36.4-46.3) RDW Coefficient of Variation 14.2 % (11.5-14.5) Immature Granulocyte % (Auto) 0.3 % Immature Granulocyte # (Auto) 0.02 K/uL (0.00-0.02) Red Blood Cell Morphology Unremarkable Anion Gap 12.0 mmol/L (3-11) Est Creatinine Clear Calc Drug Dose 65.9 ml/min Estimated GFR () 77.6 Estimated GFR (Non- 67.0 BUN/Creatinine Ratio 13.3 (10-20) Calcium Level 8.7 mg/dl (8.5-10.1) Troponin I < 0.015 ng/ml (0-0.045) Laboratory results per my review. Medications Administered Medications (Trade) Dose Ordered Sig/Andrew Route Start Time Stop Time Status Last Admin Dose Admin Benzonatate (Tessalon Perles Cap) 100 mg NOW ONCE PO 12/14/17 17:00 12/14/17 17:01 DC 12/14/17 17:18 100 MG Ketorolac Tromethamine (Toradol Inj) 30 mg NOW STAT IV 12/14/17 16:50 12/14/17 16:52 DC 12/14/17 17:18 30 MG Sodium Chloride 500 ml @ 999 mls/hr Q31M STAT IV 12/14/17 16:50 12/14/17 17:20 DC 12/14/17 17:20 999 MLS/HR ECG Indication: SOB/dyspnea Rate (beats per minute): 91 Rhythm: sinus rhythm Findings: other (Normal axis, no PVC, t-wave flattening inferiorly) Change: Patient's electrocardiogram interpreted by me. ED Course ED COURSE: Vital signs were reviewed and showed normal vitals The patients medical record was reviewed The above diagnostic studies were performed and reviewed. ED treatments and interventions as stated above. 1643: The patient was evaluated in room B2. A complete history and physical examination was performed. 1650: Ordered Sodium Chloride 500 ml @ 999 mls/hr IV, Toradol Inj 30 mg IV 1700: Ordered Benzonatate 100 mg PO 1830: Upon reevaluation, the patient is resting. I discussed my findings with the patient and she understands and agrees with the treatment plan. Based on the patients age, coexisting illnesses, exam and lab findings the decision to treat as an outpatient was made. The patient remained stable while under my care. The patient appeared well at the time of discharge. Medical Decision Differential diagnoses includes but is not limited to pneumonia, bronchitis, COPD/Asthma exacerbation, pneumothorax, pulmonary embolism, congestive heart failure, acute coronary syndrome. Patient is a 42-year-old female who presents to ER. Was that she started feeling weak. This was followed by with a sore throat, cough, runny nose and myalgias. Does have multiple sick contacts. Chest pain is completely reproducible along the left anterior chest wall. Do not believe that this is cardiac. CBC and BMP were unremarkable. Troponin was negative with reproducible chest pain that has been present for greater than 8 hours. X-ray shows no infiltrate. Influenza was negative. Patient was given Toradol, Tessalon Perles and fluids. She did feel better. She is discharged follow-up with PCP as an outpatient with a viral URI. Discussed with Pt concerning signs and symptoms to watch out for. Pt was instructed to follow up with their PCP and discussed with the patient their option to return to the ED at anytime for persistent or worsening symptoms. The appropriate anticipatory guidance and out- patient management, including indications for return to the emergency department , were explained at length to the patient and understood. Medication Reconcilliation Current Medication List: was personally reviewed by me Blood Pressure Screening Patient's blood pressure: Normal blood pressure Blood pressure disposition: Did not require urgent referral Impression Primary Impression: Viral URI with cough Scribe Attestation The scribe's documentation has been prepared under my direction and personally reviewed by me in its entirety. I confirm that the note above accurately reflects all work, treatment, procedures, and medical decision making performed by me. Departure Information Dispostion Home / Self-Care Prescriptions Benzonatate (TESSALON PERLES) 100 Mg Cap 100 MG PO TID for coughing, #30 CAP Prov: Ryan Mendez, DO 12/14/17 Referrals Farhan Chu M.D. (PCP) Forms HOME CARE DOCUMENTATION FORM, IMPORTANT VISIT INFORMATION Patient Instructions ED URI Viral, My [facility] Additional Instructions Please follow up with your primary care doctor with in the next 24 hours. Any worsening of your symptoms, please return to the ED immediately. This includes any fevers greater than 100.4, worsening pain, chest pain, shortness breath, persistent nausea, vomiting, unable to eat or drink, or any other concerning signs or symptoms from your standpoint. Please take Tylenol or Motrin as needed for muscle aches and fevers. Please take Tessalon Perles as needed for coughing.
[2017-12-14] MEDS ORDERED: GABA600T PO (20:28)
[2017-12-14] MEDS ORDERED: ZIPR1CAP4 PO (20:28)
[2017-12-14] MEDS ORDERED: MISC4CAP PO (20:28)
[2017-12-14] MEDS ORDERED: LUBI8CAP4 PO (20:28)
[2017-12-14] MEDS ORDERED: ELET20TA PO (20:28)
[2017-12-14] MEDS ORDERED: PANT40TA PO (20:28)
[2017-12-14] MEDS ORDERED: TRAZ100T29 PO (20:28)
[2017-12-14] MEDS ORDERED: HYDR-3126 PO (20:28)
== END 2017-12-14 18:33 | disposition home or self-care (01) ==
LOC: C.EDB 15:11
DX: J06.9 Acute upper respiratory infection, unspecified (principal); Z98.51 Tubal ligation status; Z90.710 Acquired absence of both cervix and uterus; Z79.899 Other long term (current) drug therapy

== ENCOUNTER → 2018-03-19 | Outpatient (CLI) | payer OTHER ==
[~2018-03-19] MED LIST changes: +ELET20TA PO; +GABA600T PO; +HYDR-3126 PO; +LUBI8CAP4 PO; +MISC4CAP PO; -ONDA4TAB46 PO; +PANT40TA PO; +TRAZ100T29 PO; +ZIPR40CA21 PO
== END | disposition home or self-care (01) ==
LOC: C.PAPS 07:48
PROVIDERS: ATTEND Obstetrics & Gynecology
DX: Z01.419 Encounter for gynecological examination (general) (routine) without abnormal findings (principal)